=== PATIENT | male | born 1935 | race Caucasian/White ===

== ENCOUNTER 2017-10-11 10:43 | Emergency (ER) | payer OTHER, MEDICARE ==
[2017-10-11 10:58] VITALS: RESP 16; TEMP 97.5
--- NOTE | 2017-10-11 11:14 | CPEKG ---
Heart Rate: 56 RR Interval: 1071 P-R Interval: 260 QRSD Interval: 134 QT Interval: 452 QTC Interval: 437 P [place]: 66 QRS [place]: -5 T Wave [place]: 105 EKG Severity - ABNORMAL ECG - EKG Impression: SINUS RHYTHM EKG Impression: FIRST DEGREE AV BLOCK EKG Impression: PROBABLE LEFT ATRIAL ABNORMALITY EKG Impression: LEFT BUNDLE BRANCH BLOCK Electronically Signed By: Maricruz Medina 11-Oct-2017 17:19:00
[2017-10-11 12:06] LABS: PLATELET COUNT 152 10^3/uL (150-400)
--- NOTE | 2017-10-11 12:42 | EDPHY ---
HPI/HX/ROS/PE/MDM Narrative: CHIEF COMPLAINT: Syncope, leg pain HISTORY OF PRESENT ILLNESS: The patient is an anticoagulated 82 y/o male arriving with his complaining of left leg pain secondary to a syncopal episode on Wednesday, 3 days ago. His medical history including CABG x4, TIA, migraines, and Factor V Leiden deficiency for which he takes Coumadin. He is in the process of getting dentures and needs 14 teeth pulled. He has a current dental infection and was placed on Amoxicillin last in preparation for this. While eating blended oatmeal on Wednesday, he felt nauseated, chilled, and lightheaded so he lied his head on the table. He then woke up on the floor with left leg pain, after a seizure versus syncope, and thinks his leg his the table. He also had some neck pain, but does not think he struck his head and that pain has improved. He denies preceding chest pain, dyspnea, or palpitations. He had increasing left leg pain over the weekend that started to improve after using ice, but is still present. His pain is worse with flexion of his left leg. No history of syncope related to cardiac issues. He denies weakness, paresthesias. Patient does have history of vasovagal related syncope. No fever, chills, chest pain, shortness of breath, palpitations, abdominal pain , vomiting, diarrhea, urinary complaints, headache, lightheadedness. REVIEW OF SYSTEMS: Aside from elements discussed in the HPI, a comprehensive 10-point review of systems was reviewed and is negative. PAST MEDICAL HISTORY: 1. CABG x4 in 2006 2. TIA 3. Migraines 4. Constipation 5. Factor V Leiden deficiency - Coumadin SOCIAL HISTORY: at bedside. Lives in [place]. Retired. PCP: Dr. Alvarez VITAL SIGNS: Reviewed by me GENERAL: Pleasant, elderly male. Resting comfortably. No respiratory distress. HEENT: Atraumatic. Eyes: No icterus, no injection. Mouth: moist mucous membranes. No erythema or lesions. Neck: supple with no adenopathy. LUNGS: Clear to auscultation bilaterally, no wheezes, rhonchi or rales. CARDIAC: Regular rate and rhythm, no rubs, murmurs or gallops. ABDOMEN: Soft, nontender, nondistended, bowel sounds normal. BACK: No CVA tenderness. EXTREMITIES: No edema. Intramuscular presumed hematomas palpable in the left lateral thigh. Normal range of motion at the knee. NEURO: Alert and oriented, grossly nonfocal. SKIN: Warm and dry, no rash. PSYCHIATRIC: Normal mentation, no agitation. Portions of this note were transcribed by a medical radiation dosimetrist. I personally performed a history, physical exam, medical decision making, and confirmed accuracy of information the transcribed note. ED Course: This is an anticoagulated 82 y/o male who presents with left thigh pain and neck pain secondary to a syncopal episode and collapse 3 days ago. He has left lateral thigh subcutaneous hematoma on exam. Plan for IV, labs, EKG, head and neck CTs, left femur and knee x-rays. The 12 lead EKG was interpreted by myself. Sinus rhythm rate 56 with LBBB. See hard copy and/or "tracemaster" electronic copy for interpretation. Labs unremarkable. Troponin negative. CT head and neck: nothing acute, left-sided gliosis noted. X-rays show nothing acute. Reassessed patient and discussed work up. I have found no specific causes for his syncopal episode and presume vasovagal reaction. He has no acute trauma from the fall requiring intervention here. He will be discharged with standard contusion and syncope care and follow up instructions. Return precautions discussed. He is comfortable with this plan. MDM: Differential diagnosis of the patient's presenting complaint was considered including but not limited to vasovagal syncope, arrhythmia, dehydration, seizure , stroke, TIA, and blood loss. - Data Points Imaging Results: Imaging Impressions Cervical Spine CT 10/11/17 13:08 Impression: 1. Senescent features, with no acute intracranial abnormality. 2. Chronic microvascular ischemic gliosis, asymmetric on the right. If there is further clinical concern, unenhanced and enhanced MR imaging could be considered. UNENHANCED CT SCAN OF THE CERVICAL SPINE Technique: A multidetector unenhanced helical CT scan was obtained from the clivus caudally through the upper thoracic spine, with images reformatted at 1.25 and 0.625 mm increments, and are reviewed in soft tissue, bone, and lung windows. Parasagittal and paracoronal reconstructed images are reviewed on the workstation. The DFOV is 16.0 cm. A dose reduction protocol was used. Findings: The cervical vertebral body heights and posterior alignments are maintained. There is a persistent mild levo-cervical/thoracic junction scoliosis. There is no acute fracture, or facet malalignment. There is a stable well-corticated ossific density along the anterior superior C5 centrum. The interspinous distances are normal. The craniocervical junction is normal. The atlantoaxial lateral mass alignment is normal. There is degenerative narrowing with subchondral sclerosis at the level the predental space. The base of the dens is normal, and there is no acute abnormality with suspect to the tip of the dens. There is no central canal stenosis, neural foraminal impingement, or focal disk herniation identified. There is no paravertebral or epidural hematoma identified. The prevertebral soft tissues are normal, as are the lung apices. At the C1-C2 level, there is no central canal stenosis. At the C2-C3 level, the central canal and the neural foramina are patent. At C3-C4 level, there is asymmetric facet hypertrophy and uncovertebral degenerative spondylosis on the left, resulting in moderate to severe neural foraminal stenosis. There is a mild degree of left lateral recess narrowing. The central canal and right neural foramen remain relatively patent. At the C4-C5 level, there is asymmetric facet degenerative hypertrophy with some uncovertebral degenerative spondylosis, resulting in mild left neural foraminal stenosis. The right neural foramen and central canal remain patent. At the C5-C6 level, there is asymmetric degenerative facet hypertrophy on the left with some uncovertebral degenerative spondylosis resulting in mild to moderate left neural foraminal narrowing. The right neural foramen and central canal remain patent. The central canal and neural foramina at C6-C7 and at C7-T1 are within normal range. The visualized upper thoracic spine is unchanged from the 2006 study, with a mild persistent superior T4 endplate concavity. Impression: Multilevel degenerative changes, as above-detailed, with no acute cervical osseous abnormality identified. If there is further clinical concern regarding the patient's symptoms, correlative MR imaging could be considered, if otherwise not contraindicated. Findings were discussed with Maricruz Medina MD at 13:59, on 10/11/2017. Femur X-Ray 10/11/17 13:08 Impression: Negative for acute abnormality. Head CT 10/11/17 13:08 Impression: 1. Senescent features, with no acute intracranial abnormality. 2. Chronic microvascular ischemic gliosis, asymmetric on the right. If there is further clinical concern, unenhanced and enhanced MR imaging could be considered. UNENHANCED CT SCAN OF THE CERVICAL SPINE Technique: A multidetector unenhanced helical CT scan was obtained from the clivus caudally through the upper thoracic spine, with images reformatted at 1.25 and 0.625 mm increments, and are reviewed in soft tissue, bone, and lung windows. Parasagittal and paracoronal reconstructed images are reviewed on the workstation. The DFOV is 16.0 cm. A dose reduction protocol was used. Findings: The cervical vertebral body heights and posterior alignments are maintained. There is a persistent mild levo-cervical/thoracic junction scoliosis. There is no acute fracture, or facet malalignment. There is a stable well-corticated ossific density along the anterior superior C5 centrum. The interspinous distances are normal. The craniocervical junction is normal. The atlantoaxial lateral mass alignment is normal. There is degenerative narrowing with subchondral sclerosis at the level the predental space. The base of the dens is normal, and there is no acute abnormality with suspect to the tip of the dens. There is no central canal stenosis, neural foraminal impingement, or focal disk herniation identified. There is no paravertebral or epidural hematoma identified. The prevertebral soft tissues are normal, as are the lung apices. At the C1-C2 level, there is no central canal stenosis. At the C2-C3 level, the central canal and the neural foramina are patent. At C3-C4 level, there is asymmetric facet hypertrophy and uncovertebral degenerative spondylosis on the left, resulting in moderate to severe neural foraminal stenosis. There is a mild degree of left lateral recess narrowing. The central canal and right neural foramen remain relatively patent. At the C4-C5 level, there is asymmetric facet degenerative hypertrophy with some uncovertebral degenerative spondylosis, resulting in mild left neural foraminal stenosis. The right neural foramen and central canal remain patent. At the C5-C6 level, there is asymmetric degenerative facet hypertrophy on the left with some uncovertebral degenerative spondylosis resulting in mild to moderate left neural foraminal narrowing. The right neural foramen and central canal remain patent. The central canal and neural foramina at C6-C7 and at C7-T1 are within normal range. The visualized upper thoracic spine is unchanged from the 2006 study, with a mild persistent superior T4 endplate concavity. Impression: Multilevel degenerative changes, as above-detailed, with no acute cervical osseous abnormality identified. If there is further clinical concern regarding the patient's symptoms, correlative MR imaging could be considered, if otherwise not contraindicated. Findings were discussed with Maricruz Medina MD at 13:59, on 10/11/2017. Knee X-Ray 10/11/17 13:08 Impression: Negative left knee radiographs. Imaging: Discussed imaging studies w/ scallop binder Radiologist, I viewed and interpreted images myself Laboratory Results: Laboratory Results 10/11/17 11:47 10/11/17 11:47 10/11/17 10/11/17 11:47 11:47 WBC 6.04 10^3/uL 10^3/uL (3.80-9.50) RBC 4.19 10^6/uL L 10^6/uL (4.40-6.38) Hgb 13.5 g/dL L g/dL (13.7-17.5) Hct 40.1 % % (40.0-51.0) MCV 95.7 fL fL (81.5-99.8) MCH 32.2 pg pg (27.9-34.1) MCHC 33.7 g/dL g/dL (32.4-36.7) RDW 13.1 % % (11.5-15.2) Plt Count 152 10^3/uL 10^3/uL (150-400) MPV 10.7 fL fL (8.7-11.7) Neut % (Auto) 71.9 % % (39.3-74.2) Lymph % (Auto) 18.2 % % (15.0-45.0) Talbot % (Auto) 7.5 % % (4.5-13.0) Eos % (Auto) 1.2 % % (0.6-7.6) Baso % (Auto) 0.7 % % (0.3-1.7) Nucleat RBC Rel Count 0.0 % % (0.0-0.2) Absolute Neuts (auto) 4.35 10^3/uL 10^3/uL (1.70-6.50) Absolute Lymphs (auto) 1.10 10^3/uL 10^3/uL (1.00-3.00) Absolute Monos (auto) 0.45 10^3/uL 10^3/uL (0.30-0.80) Absolute Eos (auto) 0.07 10^3/uL 10^3/uL (0.03-0.40) Absolute Basos (auto) 0.04 10^3/uL 10^3/uL (0.02-0.10) Absolute Nucleated RBC 0.00 10^3/uL 10^3/uL (0-0.01) Immature Gran % 0.5 % % (0.0-1.1) Immature Gran # 0.03 10^3/uL 10^3/uL (0.00-0.10) Sodium 140 mEq/L mEq/L (135-145) Potassium 4.5 mEq/L mEq/L (3.5-5.2) Chloride 105 mEq/L mEq/L (97-110) Carbon Dioxide 25 mEq/l mEq/l (22-31) Anion Gap 10 mEq/L mEq/L (8-16) BUN 20 mg/dL mg/dL (7-23) Creatinine 0.8 mg/dL mg/dL (0.7-1.3) Estimated GFR > 60 Glucose 90 mg/dL mg/dL (70-100) Calcium 9.3 mg/dL mg/dL (8.5-10.4) Creatine Kinase 226 IU/L H IU/L (0-224) CK-MB (CK-2) Fraction 2.51 ng/mL ng/mL (0.00-3.19) CK-MB (CK-2) % 1.1 % % (0.0-4.0) Creatine Kinase Interp NEGATIVE (NEGATIVE) Troponin I 0.028 ng/mL ng/mL (0.000-0.034) General Time Seen by Provider: 10/11/17 12:17 Initial Vital Signs: Initial Vital Signs Temperature (C) 36.4 C 10/11/17 10:52 Heart Rate 72 10/11/17 10:52 Respiratory Rate 16 10/11/17 10:52 Blood Pressure 150/81 H 10/11/17 10:52 O2 Sat (%) 97 10/11/17 10:52 O2 Delivery Mode Room Air Allergies/Adverse Reactions: ONIONS Allergy (Uncoded 10/11/17 10:50) Home Medications: Medication Instructions Recorded Amoxicillin 10/11/17 Ipratropium 10/11/17 Levothyroxine 10/11/17 Warfarin Sodium 10/11/17 Departure - Departure Disposition: Home, Routine, Self-Care Clinical Impression: Neck pain Syncope Qualifiers: Syncope type: vasovagal syncope Qualified Code(s): R55 - Syncope and collapse Thigh hematoma Qualifiers: Encounter type: initial encounter Laterality: left Qualified Code(s): S70.12XA - Contusion of left thigh, initial encounter Condition: Good Instructions: Lidocaine Patch (On the skin), Syncope (ED), Contusion in Adults (ED) Additional Instructions: 1. Apply ice to sore areas as needed for pain. 2. Use lidocaine patches or lidocaine creams, available [id number], as directed on the packaging for pain. Some common brands are Aspercreme lidocaine patches, Icy Hot lidocaine patches, Salonpas lidocaine patches. There are similar arthritis cream options as well. 3. Follow up with your primary care provider for unimproved symptoms over the next few days. 4. Return to the ED for worsening of condition. Referrals: Codey Alvarez MD [Primary Care Provider] - As per Instructions Report Scribed for: Maricruz Medina Report Scribed by: Tamara Beck Date of Report: 10/11/17 Time of Report: 12:49
[2017-10-11 13:12] LABS: CREATINE KINASE 226 IU/L (0-224)
[2017-10-11 14:04] VITALS: BP 142/62; PULSE 60; O2SAT 96
== END 2017-10-11 14:58 | disposition home or self-care (01) ==
DX: R55 Syncope and collapse (principal); M54.2 Cervicalgia; M79.81 Nontraumatic hematoma of soft tissue; Z79.01 Long term (current) use of anticoagulants